=== PATIENT | female | born 1975 | race Caucasian/White ===

== ENCOUNTER 2018-06-25 22:37 | Emergency (ER) | payer OTHER ==
[~2018-06-25] VITALS: Ht 165.1 cm; Wt 138.3 kg
[~2018-06-25 22:37] MED LIST: AMIT100T PO; AMLO5TAB7 PO; ATOR40TA59 PO; CHOL2000 PO; DIPH25CA58 PO; INSU100C SQ; INSU100V13 SQ; METO5TAB4 PO; OXYC1TAB22 PO; PREG150C PO; PROM25TA10 PO; SPIR25TA5 PO; TIZA4TAB PO; TORS20TA2 PO; ZALE10CA PO
--- NOTE | 2018-06-25 23:04 | PHYS DOC ---
Past Medical History Past Medical History: CHF, Diabetes-Type II, Other Additional Past Medical Histor: diabetic neuropathy, crohns Past Surgical History: Hysterectomy Additional Past Surgical Histo: fistula repair, hernia repair, bowel resection Alcohol Use: None Drug Use: None Adult General Chief Complaint Chief Complaint: HEAD INJURY/TRAUMA HPI HPI Patient is a 43 year old female who presents with head pain. Just prior to arrival patient was sitting making stockings and fell backwards striking her head on a wrought iron table. Patient has some nausea. No vomiting. No loss of consciousness. No change in vision. No bleeding. Last tetanus vaccine was 2014. No home medicines were taken. No syncopal event. Patient has a history of CHF as well as seizures. No seizure activity reported by patient or family. Patient recently started Vimpat [] Review of Systems Review of Systems Constitutional: Denies fever or chills [] Eyes: Denies change in visual acuity, redness, or eye pain [] HENT: Denies nasal congestion or sore throat [] Respiratory: Denies cough or shortness of breath [] Cardiovascular: No chest pain or palpitations[] GI: Denies abdominal pain, nausea, vomiting, bloody stools or diarrhea [] : Denies dysuria or hematuria [] Musculoskeletal: Denies back pain or joint pain [] Integument: Denies rash or skin lesions [] Neurologic: Denies focal weakness or sensory changes [] Endocrine: Denies polyuria or polydipsia [] All other systems were reviewed and found to be within normal limits, except as documented in this note. Current Medications Current Medications Current Medications Medications (Trade) Dose Ordered Sig/Radha Start Time Stop Time Status Last Admin Dose Admin Acetaminophen (Tylenol) 500 mg 1X ONCE 06/25/18 23:30 06/25/18 23:31 DC 06/25/18 23:19 500 MG Allergies Allergies Allergies Coded Allergies Type Severity Reaction Last Updated Verified Sulfa (Sulfonamide Antibiotics) Allergy Intermediate 06/12/18 Yes amoxicillin Allergy Intermediate 06/12/18 Yes aspirin Allergy Intermediate 06/12/18 Yes barium iodide Allergy Intermediate 06/12/18 Yes belladonna alkaloids Allergy Intermediate 06/12/18 Yes ceftriaxone Allergy Intermediate 06/12/18 Yes ciprofloxacin Allergy Intermediate 06/12/18 Yes clavulanic acid Allergy Intermediate 06/12/18 Yes clonidine Allergy Intermediate 06/12/18 Yes coconut Allergy Intermediate 06/13/18 Yes dicyclomine Allergy Intermediate 06/12/18 Yes droperidol Allergy Intermediate 06/12/18 Yes fentanyl Allergy Intermediate 06/12/18 Yes hyoscyamine Allergy Intermediate 06/12/18 Yes ketorolac Allergy Intermediate 06/12/18 Yes latex Allergy Intermediate 06/12/18 Yes levofloxacin Allergy Intermediate 06/12/18 Yes linezolid Allergy Intermediate 06/12/18 Yes melon Allergy Intermediate HONEYDEW 06/13/18 Yes mesalamine Allergy Intermediate 06/12/18 Yes metoclopramide Allergy Intermediate 06/12/18 Yes metronidazole Allergy Intermediate 06/12/18 Yes morphine Allergy Intermediate 06/12/18 Yes nitrofurantoin Allergy Intermediate 06/12/18 Yes ondansetron Allergy Intermediate Hives 06/12/18 Yes pantoprazole Allergy Intermediate 06/12/18 Yes paroxetine Allergy Intermediate 06/13/18 Yes prochlorperazine Allergy Intermediate 06/12/18 Yes silver nitrate Allergy Intermediate 06/13/18 Yes tegaserod Allergy Intermediate 06/12/18 Yes tree nut Allergy Intermediate 06/13/18 Yes Physical Exam Physical Exam Constitutional: Well developed, well nourished, no acute distress, non-toxic appearance. [] HENT: Normocephalic, occipital hematoma approximately 2 cm x 3 cm. No crepitus is palpated. bilateral external ears normal, oropharynx moist, no oral exudates , nose normal. [] Eyes: PERRLA, EOMI, conjunctiva normal, no discharge. [] Neck: Normal range of motion, no tenderness, supple, no stridor. [] Cardiovascular:Heart rate regular rhythm, no murmur [] Lungs & Thorax: Bilateral breath sounds clear to auscultation [] Abdomen: Bowel sounds normal, soft, no tenderness, no masses, no pulsatile masses. [] Skin: Warm, dry, no erythema, no rash. [] Back: No tenderness, no CVA tenderness. [] Extremities: No tenderness, no cyanosis, no clubbing, ROM intact, no edema. [] Neurologic: Alert and oriented X 3, normal motor function, normal sensory function, no focal deficits noted. [] Psychologic: Affect normal, judgement normal, mood normal. [] Current Patient Data Vital Signs Vital Signs Date Time Temp Pulse Resp B/P (MAP) Pulse Ox O2 Delivery O2 Flow Rate FiO2 06/25/18 22:45 98.6 110 22 146/89 (108) 3 Nasal Cannula 98.6 Lab Values Laboratory Tests Test 06/25/18 22:59 POC Urine HCG, Qualitative Hcg negative (Negative) EKG EKG [] Radiology/Procedures Radiology/Procedures CT scan of the head FINDINGS: No intracranial hemorrhage. No midline shift. Basal cisterns patent. Ventricles and sulci are unremarkable. No acute osseous abnormality. Partial visualization of suspected mucocele or polyp right maxillary sinus. IMPRESSION: 1. No acute intracranial hemorrhage. 2. Small right posterior scalp cephalohematoma.[] Course & Med Decision Making Course & Med Decision Making Pertinent Labs and Imaging studies reviewed. (See chart for details) ED course: Patient arrived, was placed in bed, tolerated exam well. Patient was transferred to and from CT without consultation. After return CT findings these were discussed with the patient and family voiced understanding. All questions were answered. Medical decision making: No evidence of syncopal event, no evidence of intracranial mass or bleed. No evidence of skull fracture.[] Dragon Disclaimer Dragon Disclaimer This electronic medical record was generated, in whole or in part, using a voice recognition dictation system. Departure Departure Impression: Primary Impression: Minor closed head injury Disposition: HOME, SELF-CARE Condition: GOOD Referrals: NO PCP (PCP) Patient Instructions: Head Injury, Adult Additional Instructions: Follow-up with your regular doctor in 2 days. Return to the ER if worsening pain , weakness, or any other concerns. JOSEPH MCGRATH DO Jun 25, 2018 23:04
[2018-06-25 23:30] VITALS: BP 146/78
[2018-06-25] MEDS ORDERED: ACETAMINOPHEN 500 MG TABLET PO ONE (23:30)
--- NOTE | 2018-06-25 23:36 | RAD ---
INDICATION: pt fell and hit back of head x today
hx seizures COMPARISON: June 12, 2018 TECHNIQUE: Axial CT images obtained through the head without intravenous contrast. One or more of the following individualized dose reduction techniques were utilized for this examination: 1. Automated exposure control; 2. Adjustment of the mA and/or kV according to patient size; 3. Use of iterative reconstruction technique. FINDINGS: No intracranial hemorrhage. No midline shift. Basal cisterns patent. Ventricles and sulci are unremarkable. No acute osseous abnormality. Partial visualization of suspected mucocele or polyp right maxillary sinus. IMPRESSION: 1. No acute intracranial hemorrhage. 2. Small right posterior scalp cephalohematoma. Electronically signed by: Brody Louie MD (06/25/2018 11:32 PM) [facility]
== END 2018-06-25 23:45 | disposition home or self-care (01) ==
LOC: ER 22:40
DX: S00.03XA Contusion of scalp, initial encounter (principal); E11.40 Type 2 diabetes mellitus with diabetic neuropathy, unspecified; Z86.79 Personal history of other diseases of the circulatory system; Z88.1 Allergy status to other antibiotic agents; Z88.2 Allergy status to sulfonamides; Z88.6 Allergy status to analgesic agent; Z88.4 Allergy status to anesthetic agent; Z88.5 Allergy status to narcotic agent; Z88.8 Allergy status to other drugs, medicaments and biological substances; Z91.018 Allergy to other foods; Z91.040 Latex allergy status; W18.09XA Striking against other object with subsequent fall, initial encounter; Y93.89 Activity, other specified; Y92.89 Other specified places as the place of occurrence of the external cause; Y99.8 Other external cause status
CPT/HCPCS: 70450; 81025; 99284-25